=== PATIENT | female | born 1975 | race Caucasian/White ===

== ENCOUNTER 2023-10-02 06:15 | Day surgery (SDC) | payer OTHER ==
[~2023-10-02 06:15] MED LIST: Lactated Ringers 1,000 ML IV SCH; Sodium Chloride 0.9% 10 ML Syringe FLUSH PRN
[2023-10-02] MEDS ORDERED: Lidocaine 2% 100 MG/5 ML Syringe IVPUSH ONE (06:16)
[2023-10-02] MEDS ORDERED: Propofol 200 MG/20 ML SDV IV ONE (06:16)
[2023-10-02] MEDS ORDERED: Simethicone Drops 40 MG/0.6 ML 30 ML Bottle PO ONE (07:56)
== END 2023-10-02 09:40 | disposition home or self-care (01) ==
LOC: FB.SDS 06:15 → MERGE 09:30 → FB.SDS 09:40
PROVIDERS: ATTEND Surgery
DX: Z12.11 Encounter for screening for malignant neoplasm of colon (principal); F17.210 Nicotine dependence, cigarettes, uncomplicated; Z79.899 Other long term (current) drug therapy; Z98.890 Other specified postprocedural states; Z88.0 Allergy status to penicillin
CPT/HCPCS: 36415; 82947; 84132; A9270; G0121; J2704; J7120

== ENCOUNTER 2023-10-03 11:13 | Emergency (ER) | payer OTHER ==
[2023-10-03] MEDS ORDERED: Ondansetron 4 MG Tab.DIS PO ONE (11:45)
[2023-10-03] MEDS ORDERED: Meclizine 25 MG Tab PO ONE ×2 (13:17→21:38)
[2023-10-03] MEDS ORDERED: Acetaminophen/oxyCODONE 325-5 MG Tab PO PRN (13:17)
[2023-10-03] MEDS ORDERED: levETIRAcetam 500 MG Tab PO STA (21:30)
== END 2023-10-03 22:13 | disposition home or self-care (01) ==
LOC: FB.ED 11:13
DX: S06.340A Traumatic hemorrhage of right cerebrum without loss of consciousness, initial encounter (principal); Z88.0 Allergy status to penicillin; Z79.899 Other long term (current) drug therapy; W01.198A Fall on same level from slipping, tripping and stumbling with subsequent striking against other object, initial encounter; Y92.002 Bathroom of unspecified non-institutional (private) residence as the place of occurrence of the external cause
CPT/HCPCS: 70450; 99284; A9270-GY; Q0162